=== PATIENT | male | born 1960 | race Caucasian/White ===

== ENCOUNTER 2017-07-19 16:20 | Inpatient (IN) | payer OTHER ==
[2017-07-19] VITALS (11 sets, daily range): BP systolic 116–178; BP diastolic 69–104; PULSE 77–92; RESP 16–18; TEMP 98.6; O2SAT 94–98
[~2017-07-19] VITALS: Ht 185.4 cm; Wt 93.7 kg
[~2017-07-19 16:20] MED LIST: ASPI81 PO; ATOR80TA PO; ISOS30TA3 PO; LISI-363 PO
--- NOTE | 2017-07-19 16:43 | PD ---
HPI Chief Complaint: Chest Pain Time Seen by Provider: 16:25 Travel History International Travel<30 days: No Contact w/Intl Traveler<30days: No Traveled to known affect area: No History of Present Illness HPI 56yo M with PMH of CAD s/p cardiac stent, HTN presents to the ED with c/o left sided chest pain that started about 1.5 hours ago. Pain is achy and sharp and waxes and wanes. Radiates to left arm and associated with sob and diaphoresis. Pt was just sitting down when pain started. Pt took 4 nitroglycerin but pain is not relieved. After School Counselor is Dr. Queen. Last cath was about 4-5 years ago. Denies any fever, cough, vomiting, abdominal pain, focal weakness or numbness. Last stress test about 7-8 months ago. PFSH Past Medical History Hx Anticoagulant Therapy: Yes (asa) Arthritis: No Asthma: No Heart Rhythm Problems: No Cardiovascular Problems: Yes High Cholesterol: Yes Chest Pain: Yes Congestive Heart Failure: No COPD: No Cerebrovascular Accident: No Diminished Hearing: No GERD: No Headaches: No Hepatitis: No Hiatal Hernia: No Hypertension: Yes Musculoskeletal: No Neurologic: No Respiratory: No Immunizations Current: Yes Migraines: No Myocardial Infarction: No Seizures: No Sleep Apnea: No Ulcer: No Past Surgical History Abdominal Surgery: No Appendectomy: No Cardiac Surgery: Yes (card stents times 2) Cholecystectomy: No Coronary Stent: Yes (x2) Ear Surgery: No Endocrine Surgery: No Eye Surgery: No Genitourinary Surgery: Yes (hernia repair) Gynecologic Surgery: No Oral Surgery: Yes Thoracic Surgery: No Other Surgery: Yes Social History Alcohol Use: Yes (occ) Tobacco Use: Yes (1 pk q 3 days) Substance Use: Yes (pot) Allergies-Medications (Allergen,Severity, Reaction): Coded Allergies: No Known Allergies (Verified Allergy, Unknown, 07/19/17) Reported Meds & Prescriptions Reported Meds & Active Scripts Active Reported Pantoprazole (Pantoprazole Sodium) 40 Mg Tab 40 Mg PO DAILY Isosorbide Mononitrate ER (Isosorbide Mononitrate) 60 Mg Tab 60 Mg PO DAILY Metoprolol Succinate ER 24 HR (Metoprolol Succinate) 50 Mg Tab 50 Mg PO DAILY Losartan (Losartan Potassium) 50 Mg Tab 50 Mg PO DAILY Atorvastatin (Atorvastatin Calcium) 80 Mg Tab 80 Mg PO HS Review of Systems Except as stated in HPI: all other systems reviewed are Neg Physical Exam Narrative GENERAL: 56yo M in mild distress. SKIN: Focused skin assessment warm/dry. HEAD: Atraumatic. Normocephalic. EYES: Pupils equal and round. No scleral icterus. No injection or drainage. ENT: No nasal bleeding or discharge. Mucous membranes pink and moist. NECK: Trachea midline. No JVD. CARDIOVASCULAR: Regular rate and rhythm. No murmur appreciated. RESPIRATORY: No accessory muscle use. Clear to auscultation. Breath sounds equal bilaterally. GASTROINTESTINAL: Abdomen soft, non-tender, nondistended. MUSCULOSKELETAL: No obvious deformities. No clubbing. No cyanosis. No edema. NEUROLOGICAL: Awake and alert. No obvious cranial nerve deficits. Motor grossly within normal limits. Normal speech. PSYCHIATRIC: Appropriate mood and affect; insight and judgment normal. Data Data Last Documented VS Vital Signs Date Time Temp Pulse Resp B/P (MAP) Pulse Ox O2 Delivery O2 Flow Rate FiO2 07/19/17 17:15 90 18 160/102 (121) 95 Room Air 07/19/17 16:35 98.6 Orders Orders Basic Metabolic Panel (Bmp) (07/19/17 16:37) Ckmb (Isoenzyme) Profile (07/19/17 16:37) Complete Blood Count With Diff (07/19/17 16:37) Prothrombin Time / Inr (Pt) (07/19/17 16:37) Act Partial Throm Time (Ptt) (07/19/17 16:37) Troponin I (07/19/17 16:37) Chest, Single Ap (07/19/17 16:37) Aspirin (Aspirin) (07/19/17 16:45) Morphine Inj (Morphine Inj) (07/19/17 16:45) Nitroglycerin 2% Oint (Nitroglycerin 2% (07/19/17 16:45) CKMB (07/19/17 16:45) CKMB% (07/19/17 16:45) Nitroglycerin-D5w 50 Mg/250 Ml (Nitrogly (07/19/17 17:45) Sodium Chloride 0.9% Flush (Ns Flush) (07/19/17 21:00) Sodium Chloride 0.9% Flush (Ns Flush) (07/19/17 18:00) Assistant Program Manager / Telemetry [id number] (07/19/17 17:49) Heparin Inj (Heparin Inj) (07/19/17 18:00) Heparin Inj (Heparin Inj) (07/20/17 00:00) Heparin Inj (Heparin Inj) (07/20/17 00:00) Heparin-D5w 25,000 U/250 Ml (Heparin-D5w (07/19/17 18:00) Cbc No Diff, Includes Plts (07/22/17 06:00) Act Partial Throm Time (Ptt) (07/20/17 00:49) Occult Blood (Hemoccult) Stool (07/19/17 17:49) Consult Cardiology (07/19/17 ) Admit Order (Ed Use Only) (07/19/17 17:55) Labs Laboratory Tests Test 07/19/17 16:45 White Blood Count 10.5 TH/MM3 Red Blood Count 5.44 MIL/MM3 Hemoglobin 15.7 GM/DL Hematocrit 46.3 % Mean Corpuscular Volume 85.0 FL Mean Corpuscular Hemoglobin 28.8 PG Mean Corpuscular Hemoglobin Concent 33.9 % Red Cell Distribution Width 12.5 % Platelet Count 203 TH/MM3 Mean Platelet Volume 9.8 FL Neutrophils (%) (Auto) 68.2 % Lymphocytes (%) (Auto) 20.2 % Monocytes (%) (Auto) 8.1 % Eosinophils (%) (Auto) 2.5 % Basophils (%) (Auto) 1.0 % Neutrophils # (Auto) 7.2 TH/MM3 Lymphocytes # (Auto) 2.1 TH/MM3 Monocytes # (Auto) 0.8 TH/MM3 Eosinophils # (Auto) 0.3 TH/MM3 Basophils # (Auto) 0.1 TH/MM3 CBC Comment DIFF FINAL Differential Comment Prothrombin Time 10.0 SEC Prothromb Time International Ratio 1.0 RATIO Activated Partial Thromboplast Time 23.6 SEC Blood Urea Nitrogen 15 MG/DL Creatinine 0.91 MG/DL Random Glucose 88 MG/DL Calcium Level 9.4 MG/DL Sodium Level 138 MEQ/L Potassium Level 3.6 MEQ/L Chloride Level 105 MEQ/L Carbon Dioxide Level 24.4 MEQ/L Anion Gap 9 MEQ/L Estimat Glomerular Filtration Rate 86 ML/MIN Total Creatine Kinase 117 U/L Creatine Kinase MB 2.8 NG/ML Troponin I LESS THAN 0.02 NG/ML [facility] Medical Decision Making Medical Screen Exam Complete: Yes Emergency Medical Condition: Yes Interpretation(s) EKG: Sinus tachycardia at 100bpm. LAD. RBBB that is unchanged. Q wave V2. Repeat EKG showed NSR 95bpm. RBBB. ST depression V3. Differential Diagnosis Unstable angina vs. NSTEMI Narrative Course 56yo M with left sided chest pain that started about 1.5 hours ago. Pt was just sitting down watching TV and took 4 sublingual nitro but did not help with pain. Pt said the nitro usually helps but not this time. Pt given aspirin and nitro paste but still with pain. He was given 2mg of morphine IV and pain was relieved for only a few minutes and is back. BP is elevated at 178/104 and then 160/102 after morphine. Will start pt on nitro drip and heparin drip and unstable angina. Labs reviewed, no leukocytosis. H/H normal. Troponin negative. CXR negative. Discussed with recycling crew supervisor sap pp consultant Dr. Brown who agrees with nitro and heparin drip to bring systolic BP down to less than 140. Agreed with transfer to [facility]. If patient remains in pain, pt may need emergent cath. Will update her after nitro drip. Discussed with Dr. Spence and accepted to his service. Pt reevaluated at bedside and BP is now 127/75. Pt said he still have left sided chest pain around 5 out of [address] Napoles and she advise me to call Dr. Herrera who is sap pp consultant for STEMI and see if he wants to do cardiac cath now. Discussed with Dr. Herrera who said to continue current management and transfer pt to the [facility] nonemergently. Critical Care Narrative Aggregate critical care time was 45 minutes. Time to perform other separately billable procedures was not included in the critical care time. My time did not include minutes spent treating any other patients simultaneously or on activities that did not directly contribute to the patient's treatment. The services I provided to this patient were to treat and/or prevent clinically significant deterioration that could result in: cardiovascular collapse or . I provided critical care services requiring my management, as noted below: Chart data review, documentation time, medication orders and management, vital sign assessments/reviewing monitor data, ordering and reviewing lab tests, ordering and interpreting/reviewing x-rays and diagnostic studies, care of the patient and discussion of the patient with the admitting physicians. Diagnosis Primary Impression: Unstable angina Admitting Information Admitting Physician Requests: it Laly Pinto DO Jul 19, 2017 16:43
[2017-07-19] MEDS ORDERED: ASPIRIN 325 MG TAB PO ONE (16:45)
[2017-07-19] MEDS ORDERED: ATOR80TA45 PO (16:45)
[2017-07-19] MEDS ORDERED: ISOS60TA PO (16:45)
[2017-07-19] MEDS ORDERED: NITROGLYCERIN 2% OINT 1 GM PACKET TOP ONE (16:45)
[2017-07-19] MEDS ORDERED: MORPHINE SULFATE 4 MG/ML INJ IV PUSH ONE (16:45)
[2017-07-19] MEDS ORDERED: PANT40TA3 PO (16:45)
[2017-07-19] MEDS ORDERED: LOSA50TA PO (16:45)
[2017-07-19] MEDS ORDERED: METO1TAB9 PO (16:45)
--- NOTE | 2017-07-19 17:06 | RADRPT ---
EXAM DATE/TIME: 07/19/2017 16:52 [facility] COMPARISON: CHEST SINGLE AP, September 12, 2015, 13:57. INDICATIONS : Chest pain MEDICAL HISTORY : Myocardial infarction. Hypertension SURGICAL HISTORY : cardiac stents ENCOUNTER: Initial ACUITY: 1 day PAIN SCORE: 9/10 LOCATION: Bilateral chest FINDINGS: A single view of the chest demonstrates the lungs to be symmetrically aerated without evidence of mas s, infiltrate or effusion. The cardiomediastinal contours are unremarkable. Osseous structures are intact. CONCLUSION: No acute disease. Eduard Garcia MD on July 19, 2017 at 17:04 Board Certified Radiologist. This report was verified electronically.
[2017-07-19 17:07] LABS: AUTOMATED NEUTROPHIL # 7.2 TH/MM3 (1.8-7.7); BASOPHIL # 0.1 TH/MM3 (0-0.2); EOSINOPHIL # 0.3 TH/MM3 (0-0.4); EOSINOPHIL % 2.5 % (0.0-4.0); HEMATOCRIT 46.3 % (39.0-51.0); HEMOGLOBIN 15.7 GM/DL (13.0-17.0); LYMPH % 20.2 % (9.0-44.0); LYMPHOCYTE # 2.1 TH/MM3 (1.0-4.8); MEAN CORPUSCULAR HEMOGLOBIN 28.8 PG (27.0-34.0); MEAN CORPUSCULAR HGB CONC 33.9 % (32.0-36.0); MEAN PLATELET VOLUME 9.8 FL (7.0-11.0); MONO % 8.1 % (0.0-8.0); MONOCYTE # 0.8 TH/MM3 (0-0.9); NEUT % 68.2 % (16.0-70.0); PLATELET COUNT 203 TH/MM3 (150-450); RED BLOOD COUNT 5.44 MIL/MM3 (4.50-5.90); RED CELL DISTRIBUTION WIDTH 12.5 % (11.6-17.2); WHITE BLOOD COUNT 10.5 TH/MM3 (4.0-11.0)
[2017-07-19 17:13] LABS: CHLORIDE 105 MEQ/L (98-107); SODIUM (NA) 138 MEQ/L (136-145)
[2017-07-19 17:16] LABS: CALCIUM 9.4 MG/DL (8.5-10.1)
[2017-07-19 17:17] LABS: BICARBONATE 24.4 MEQ/L (21.0-32.0); BLOOD UREA NITROGEN 15 MG/DL (7-18); GLUCOSE,RANDOM 88 MG/DL (74-106)
[2017-07-19 17:20] LABS: CREATININE 0.91 MG/DL (0.60-1.30); GLOMERULAR FILTRATION RATE 86 ML/MIN (>89)
[2017-07-19 17:24] LABS: TROPONIN I LESS THAN 0.02 NG/ML (0.02-0.05)
[2017-07-19] MEDS ORDERED: NITROGLYCERIN-D5W 50 MG/250 ML 250 ML IV ONE (17:45)
[2017-07-19] MEDS ORDERED: ACETAMINOPHEN 325 MG TAB PO PRN (18:00)
[2017-07-19] MEDS ORDERED: HEPARIN SODIUM - IV 10,000 UNITS/10 ML VIAL IV PUSH ONE (18:00)
[2017-07-19] MEDS ORDERED: ONDANSETRON HCL 4 MG/2 ML VIAL IV PUSH PRN (18:00)
[2017-07-19] MEDS ORDERED: HEPARIN-D5W 25,000 U/250 ML 250 ML IV PRN (18:00)
[2017-07-19] MEDS ORDERED: ALPRAZolam 0.25 MG TAB PO PRN (18:00)
[2017-07-19] MEDS ORDERED: MORPHINE SULFATE 4 MG/ML INJ IV PUSH PRN (18:00)
[2017-07-19] MEDS ORDERED: DOCUSATE SODIUM 100 MG CAP PO PRN (18:00)
[2017-07-19] MEDS ORDERED: SODIUM CHLORIDE 0.9% FLUSH 10 ML FLUSH IV FLUSH PRN ×2 (18:00)
[2017-07-19] MEDS: NITROGLYCERIN 2% OINT 1 GM PACKET TOP SCH ×2 (18:00→23:58)
[2017-07-19 20:52] LABS: TROPONIN I LESS THAN 0.02 NG/ML (0.02-0.05)
[2017-07-19] MEDS ORDERED: ATORVASTATIN 40 MG TAB PO SCH (21:00)
[2017-07-19] MEDS: SODIUM CHLORIDE 0.9% FLUSH 10 ML FLUSH IV FLUSH SCH ×2 (21:00)
[2017-07-19 23:27] LABS: TROPONIN I LESS THAN 0.02 NG/ML (0.02-0.05)
[2017-07-20] VITALS (24 sets, daily range): BP systolic 121–159; BP diastolic 81–104; PULSE 64–100; RESP 14–20; TEMP 97.7–98.3; O2SAT 94–97
[2017-07-20] MEDS ORDERED: HEPARIN SODIUM - IV 10,000 UNITS/10 ML VIAL IV PUSH PRN ×2
--- NOTE | 2017-07-20 02:03 | HHI.HP ---
[facility] Linden Palma DO Admission Diagnosis Unstable angina Diagnoses: Chief Complaint: Chest pain Travel History International Travel<30 Days: No Contact w/Intl Traveler <30 Da: No Traveled to Known Affected Are: No History of Present Illness 50-year-old male with medical history of CAD status post cardiac stent, hypertension presented to the ED complaining of chest pain about an hour prior to arrival. Patient states he took 5 nitro pills prior to coming to the hospital with no relief. He states the pain chest pain is pressure-like, midsternal, currently 5 out of 10 with no radiation and at times associated shortness of breath. He states the nitroglycerin drip is helping and nothing makes it worse. Illness, no cough or congestion, dizziness, fever or chills. Review of Systems Except as stated in HPI: all other systems reviewed are Neg Past Family Social History Past Medical History CAD status post cardiac stent placement Hypertension Hyperlipidemia Past Surgical History Cardiac stent placement Reported Medications Reported Meds & Active Scripts Active Reported Pantoprazole (Pantoprazole Sodium) 40 Mg Tab 40 Mg PO DAILY Isosorbide Mononitrate ER (Isosorbide Mononitrate) 60 Mg Tab 60 Mg PO DAILY Metoprolol Succinate ER 24 HR (Metoprolol Succinate) 50 Mg Tab 50 Mg PO DAILY Losartan (Losartan Potassium) 50 Mg Tab 50 Mg PO DAILY Atorvastatin (Atorvastatin Calcium) 80 Mg Tab 80 Mg PO HS Allergies: Coded Allergies: No Known Allergies (Verified Allergy, Unknown, 07/19/17) Active Ordered Medications Current Medications Medications (Trade) Dose Ordered Sig/Kelsy Route Start Time Stop Time Status Last Admin (NS Flush) 2 ml BID IV FLUSH 07/19/17 21:00 (NS Flush) 2 ml UNSCH PRN IV FLUSH 07/19/17 18:00 (Heparin Inj) 5,000 units UNSCH PRN IV PUSH 07/20/17 00:00 (Heparin Inj) 2,500 units UNSCH PRN IV PUSH 07/20/17 00:00 Heparin Sodium/ Dextrose 250 ml @ 11.28 mls/ hr TITRATE PRN IV 07/19/17 18:00 07/19/17 18:12 (NS Flush) 2 ml BID IV FLUSH 07/19/17 21:00 (NS Flush) 2 ml UNSCH PRN IV FLUSH 07/19/17 18:00 (Ecotrin Ec) 325 mg DAILY PO 07/20/17 09:00 (Nitroglycerin 2% Oint) 1 inch Q6HR TOP 07/19/17 18:00 (Morphine Inj) 2 mg Q30M PRN IV PUSH 07/19/17 18:00 07/19/17 20:30 (Tylenol) 650 mg Q6H PRN PO 07/19/17 18:00 (Colace) 100 mg BID PRN PO 07/19/17 18:00 (Xanax) 0.25 mg Q8H PRN PO 07/19/17 18:00 07/20/17 00:00 (Zofran Inj) 4 mg Q6H PRN IV PUSH 07/19/17 18:00 07/19/17 20:29 (Lipitor) 80 mg HS PO 07/19/17 21:00 07/19/17 23:57 (Imdur) 60 mg DAILY PO 07/20/17 09:00 (Cozaar) 50 mg DAILY PO 07/20/17 09:00 (Toprol Xl) 50 mg DAILY PO 07/20/17 09:00 (Protonix) 40 mg DAILY PO 07/20/17 09:00 Family History Both grandfathers of MIs Social History Tobacco use: Alcohol use: Illicit drug use: Physical Exam Vital Signs Vital Signs Date Time Temp Pulse Resp B/P (MAP) Pulse Ox O2 Delivery O2 Flow Rate FiO2 07/20/17 00:00 98.3 75 20 150/102 (118) 97 07/20/17 00:00 Room Air 07/20/17 00:00 75 07/19/17 22:10 78 144/89 (107) 07/19/17 21:39 87 140/88 (105) 07/19/17 21:00 148/90 (109) 07/19/17 20:55 95 Nasal Cannula 2.00 07/19/17 20:36 89 16 152/91 (111) 94 Nasal Cannula 2.00 07/19/17 20:00 92 146/89 (108) 07/19/17 19:30 80 145/70 (95) 07/19/17 19:14 78 98 Nasal Cannula 2.00 07/19/17 19:14 78 18 120/69 (86) 98 Nasal Cannula 2.00 07/19/17 18:27 77 18 116/78 (91) 94 Room Air 07/19/17 18:26 93 116/78 07/19/17 17:15 90 18 160/102 (121) 95 Room Air 07/19/17 16:38 90 18 95 Room Air 07/19/17 16:35 98.6 91 18 178/104 (128) 95 Physical Exam GENERAL: This is a well-nourished, well-developed patient, in no apparent distress. SKIN: No rashes, ecchymoses or lesions. Cool and dry. HEAD: Atraumatic. Normocephalic. EYES: Pupils equal round and reactive. Extraocular motions intact. ENT: Nose without bleeding, purulent drainage or septal hematoma.Airway patent. NECK: Trachea midline. No JVD or lymphadenopathy. CARDIOVASCULAR: Regular rate and rhythm without murmurs, gallops, or rubs. RESPIRATORY: Clear to auscultation. Breath sounds equal bilaterally. No wheezes , rales, or rhonchi. GASTROINTESTINAL: Abdomen soft, non-tender, nondistended. No hepato-splenomegaly , or palpable masses. No guarding. MUSCULOSKELETAL: Extremities without clubbing, cyanosis, or edema.No calf tenderness. NEUROLOGICAL: Awake and alert. Motor and sensory grossly within normal limits. Normal speech. Laboratory Laboratory Tests Test 07/19/17 16:45 07/19/17 20:05 07/19/17 22:40 White Blood Count 10.5 Red Blood Count 5.44 Hemoglobin 15.7 Hematocrit 46.3 Mean Corpuscular Volume 85.0 Mean Corpuscular Hemoglobin 28.8 Mean Corpuscular Hemoglobin Concent 33.9 Red Cell Distribution Width 12.5 Platelet Count 203 Mean Platelet Volume 9.8 Neutrophils (%) (Auto) 68.2 Lymphocytes (%) (Auto) 20.2 Monocytes (%) (Auto) 8.1 Eosinophils (%) (Auto) 2.5 Basophils (%) (Auto) 1.0 Neutrophils # (Auto) 7.2 Lymphocytes # (Auto) 2.1 Monocytes # (Auto) 0.8 Eosinophils # (Auto) 0.3 Basophils # (Auto) 0.1 CBC Comment DIFF FINAL Differential Comment Prothrombin Time 10.0 Prothromb Time International Ratio 1.0 Activated Partial Thromboplast Time 23.6 Blood Urea Nitrogen 15 Creatinine 0.91 Random Glucose 88 Calcium Level 9.4 Sodium Level 138 Potassium Level 3.6 Chloride Level 105 Carbon Dioxide Level 24.4 Anion Gap 9 Estimat Glomerular Filtration Rate 86 Total Creatine Kinase 117 107 99 Creatine Kinase MB 2.8 2.3 Troponin I LESS THAN 0.02 LESS THAN 0.02 LESS THAN 0.02 Result Diagram: 07/19/175 07/19/171644 Caprini VTE Risk Assessment Caprini VTE Risk Assessment: Mod/High Risk (score >= 2) Caprini Risk Assessment Model Point Value = 1 Point Value = 2 Point Value = 3 Point Value = 5 Age 41-60 Minor surgery BMI > 25 kg/m2 Swollen legs Varicose veins or History of unexplained or recurrent spontaneous Oral contraceptives or hormone replacement Sepsis (< 1 month) Serious lung disease, including pneumonia (< 1 month) Abnormal pulmonary function Acute myocardial infarction Congestive heart failure (< 1 month) History of inflammatory bowel disease Medical patient at bed rest Age 61-74 Arthroscopic surgery Major open surgery (> 45 min) Laparoscopic surgery (> 45 min) Malignancy Confined to bed (> 72 hours) Immobilizing plaster cast Central venous access Age >= 75 History of VTE Family history of VTE Factor V Leiden Prothrombin [id number] Lupus anticoagulant Anticardiolipin antibodies Elevated serum homocysteine Heparin-induced thrombocytopenia Other congenital or acquired thrombophilia Stroke (< 1 month) Elective arthroplasty Hip, pelvis, or leg fracture Acute spinal cord injury (< 1 month) Prophylaxis Regimen Total Risk Factor Score Risk Level Prophylaxis Regimen 0-1 Low Early ambulation 2 Moderate Order ONE of the following: *Sequential Compression Device (SCD) *Heparin 5000 units SQ BID 3-4 Higher Order ONE of the following medications: *Heparin 5000 units SQ TID *Enoxaparin/Lovenox 40 mg SQ daily (WT < 150 kg, CrCl > 30 mL/min) *Enoxaparin/Lovenox 30 mg SQ daily (WT < 150 kg, CrCl > 10-29 mL/min) *Enoxaparin/Lovenox 30 mg SQ BID (WT < 150 kg, CrCl > 30 mL/min) AND/OR *Sequential Compression Device (SCD) 5 or more Highest Order ONE of the following medications: *Heparin 5000 units SQ TID (Preferred with Epidurals) *Enoxaparin/Lovenox 40 mg SQ daily (WT < 150 kg, CrCl > 30 mL/min) *Enoxaparin/Lovenox 30 mg SQ daily (WT < 150 kg, CrCl > 10-29 mL/min) *Enoxaparin/Lovenox 30 mg SQ BID (WT < 150 kg, CrCl > 30 mL/min) AND *Sequential Compression Device (SCD) Assessment and Plan Problem List: (1) Unstable angina ICD Code: I20.0 - Unstable angina Status: Acute (2) HTN (hypertension) ICD Code: I10 - Essential (primary) hypertension Status: Acute (3) Hyperlipidemia ICD Code: E78.5 - Hyperlipidemia, unspecified Assessment and Plan 50-year-old male with medical history of CAD status post cardiac stent, hypertension presented to the ED complaining of chest pain about an hour prior to arrival. Unstable angina Troponin 0.023, EKG reviewed and shows no ST elevation -Continue nitro drip and heparin drip -Cardiology is consulted for possible cath -N.p.o. -2D echo ordered Hypertension, chronic -Resume home medications metoprolol, Imdur, and Cozaar -Monitor vitals Hyperlipidemia, chronic -Resume home medications atorvastatin DVT prophylaxis: Heparin Discussed Condition With Patient and RN Physician Certification 2 Midnight Certification Type: Admission for Inpatient Services Order for Inpatient Services The services are ordered in accordance with Medicare regulations or non- Medicare payer requirements, as applicable. In the case of services not specified as inpatient-only, they are appropriately provided as inpatient services in accordance with the 2-midnight benchmark. Estimated LOS (days): 2 days is the estimated time the patient will need to remain in the hospital, assuming treatment plan goals are met and no additional complications. Post-Hospital Plan: Home Janeen Schmitt Jul 20, 2017 02:03
[2017-07-20 02:29] LABS: CHOLESTEROL/ HDL RATIO 2.97 RATIO; HDL CHOLESTEROL 34.3 MG/DL (40.0-60.0)
[2017-07-20 02:58] LABS: CREATININE 0.88 MG/DL (0.60-1.30)
[2017-07-20 02:59] LABS: BICARBONATE 25.3 MEQ/L (21.0-32.0); CALCIUM 8.6 MG/DL (8.5-10.1)
[2017-07-20] MEDS: NITROGLYCERIN 2% OINT 1 GM PACKET TOP SCH ×3 (06:00→18:00)
[2017-07-20 06:53] LABS: AUTOMATED NEUTROPHIL # 6.3 TH/MM3 (1.8-7.7); BASOPHIL # 0.1 TH/MM3 (0-0.2); BASOPHIL % 1.1 % (0.0-2.0); EOSINOPHIL # 0.3 TH/MM3 (0-0.4); EOSINOPHIL % 3.1 % (0.0-4.0); HEMATOCRIT 42.7 % (39.0-51.0); HEMOGLOBIN 14.9 GM/DL (13.0-17.0); LYMPH % 25.5 % (9.0-44.0); LYMPHOCYTE # 2.6 TH/MM3 (1.0-4.8); MEAN CELL VOLUME 85.2 FL (80.0-100.0); MEAN CORPUSCULAR HEMOGLOBIN 29.7 PG (27.0-34.0); MEAN CORPUSCULAR HGB CONC 34.9 % (32.0-36.0); MEAN PLATELET VOLUME 10.5 FL (7.0-11.0); MONO % 8.4 % (0.0-8.0); MONOCYTE # 0.9 TH/MM3 (0-0.9); NEUT % 61.9 % (16.0-70.0); PLATELET COUNT 181 TH/MM3 (150-450); RED BLOOD COUNT 5.02 MIL/MM3 (4.50-5.90); RED CELL DISTRIBUTION WIDTH 13.5 % (11.6-17.2); WHITE BLOOD COUNT 10.2 TH/MM3 (4.0-11.0)
[2017-07-20] MEDS ORDERED: PANTOPRAZOLE SOD 40 MG DELAYED RELEASE TAB PO SCH (09:00)
[2017-07-20] MEDS: SODIUM CHLORIDE 0.9% FLUSH 10 ML FLUSH IV FLUSH SCH ×2 (09:00→09:56)
[2017-07-20] MEDS ORDERED: ISOSORBIDE MONONITRATE 60 MG CR TAB (IMDUR) PO SCH (09:00)
[2017-07-20] MEDS ORDERED: LOSARTAN 50 MG TAB PO SCH (09:00)
[2017-07-20] MEDS ORDERED: METOPROLOL SUCCINATE 50 MG EXTENDED RELEASE TAB PO SCH (09:00)
[2017-07-20] MEDS ORDERED: ASPIRIN EC 325 MG TABEC PO SCH (09:00)
[2017-07-20] MEDS ORDERED: MIDAZOLAM HCL 2 MG/2 ML VIAL ONE (13:04)
[2017-07-20] MEDS ORDERED: HEPARIN SODIUM - IV 10,000 UNITS/10 ML VIAL ONE (13:04)
[2017-07-20] MEDS ORDERED: NITROGLYCERIN INJ 5 ML ONE (13:04)
[2017-07-20] MEDS ORDERED: VERAPAMIL HCL 5 MG/2 ML VIAL ONE (13:04)
[2017-07-20] MEDS ORDERED: HEPARIN-NS/PF FLUSH BAG 2,000 ML IV FLUSH ONE (13:05)
[2017-07-20] MEDS ORDERED: LIDOCAINE HCL 1% PF 30 ML VIAL ONE (13:13)
[2017-07-20] MEDS ORDERED: amLODIPine BESYLATE 5 MG TAB PO SCH (14:00)
[2017-07-20] MEDS ORDERED: MISC INFORMATION XX ONE (14:00)
--- NOTE | 2017-07-20 14:01 | CATHPROC ---
[employer] HIS Report Study Information Study Number Admission Scheduled Start Study Start [id number] Jul 19 2017 5:56PM 07/20/2017 Jul 20 2017 12:45PM [facility] Cardiac Catheterization Admit Source Facility Department Emergency department [facility] Experience Expert Physician and Clinical Staff Initial Huang Mabry Curing Supervisorscot Case RN, Abner Curing SupervisorLeonid Haskins RN Recorder Leatha Terrell,DAISY TECH2 Scrub Shahzad Alcala RCIS(BS) Procedures Performed Procedure Location (Site) Vessel Name Coronary Angiograms LCA Left Coronary Coronary Angiograms RCA Right Coronary L Heart Cath Equipment Time Aids Social Worker Description Size Mfg Part Number Used/Scraped TRANSDUCER, TRUWAVE [id number] 12:55 MOORE DICKINSON * Used W/STOCKCOCK *[id number] *[id number] 12:55 Salemarked PACK, CCL CUSTOM * Used *[id number] 12:55 [employer]arked SUPPORT, ARTERIAL ADULT 63214 *[id number] Used [id number] 13:15 MEDTRONIC JR 4.0 DXTERITY CATHETER FR 5 Used *[id number] BAND, RADIAL COMPRESSION TR [id number] 13:36 Pharmly MEDICAL 24CM Used SHORT 24 *[id number] 12:55 Metal [employer] WIRE, EXCHANGE 260CM 3MMJ 260CM Used *[id number] 12:55 NAMIC MANIFOLD, 4 PORT * Used *[id number] 12:55 NYCOMED OMNIPAQUE, 350 MG, 150ML 150ML [id number] Used [id number] 12:55 ANAYA MEDICAL BLANKET,WARM AIR CCL * Used *[id number] SHEATH, FR6 TRANSRADIAL RM*[id number] 12:55 Medigus MEDICAL FR 6 Used SLENDER 10CM *[id number] Equipment Model, Serial, Lot Number and Expiration Data Description Model Number Serial Number Lot Number Expiration Date JR 4.0 DXTERITY CATHETER [id number] 01-16-2020 History: Current Medications Medication Dosage/Unit Route Frequency Last Date/Time Taken Imdur LOPRESSOR Statins (any) History: Allergies Allergy Reaction No Known Allergies History: Risk Factors Family History of Hypertension Dyslipidemia Previous IA Previous Heart Failure Premature CAD Yes Yes Yes Yes No Prior Valve Prior PCI Prior PCIDate Prior CABG Surgery No Yes 04/06/2013 No Cerebrovascular Peripheral Artery Chronic Lung On Dialysis Diabetes Disease Disease Disease No No No No No History: Symptoms/Diagnosis Selection Items Chest pain SOB History: Stress Tests Stress or Imaging Studies Performed No History: Other Current Smoker Method Packs a Day Years Used Pack Years Yes Cigarettes 1 40 40 Labs Hgb (g/dl) Hct (%) WBC (l/cumm) Platelets (thousands) 11.60-17.00 35.00-51.00 4.00-11.00 150.00-450.00 14.9 42.7 10.2 181 BUN (mg/dl) Creatinine (mg/dl) BUN:Creatinine (1:x) 7.00-18.00 0.50-1.30 10.00-20.00 14 0.9 15.6 Na (meq/l) K (meq/l) Cl (meq/l) CO2 (mmol/L) 136.00-145.00 3.50-5.10 98.00-107.00 21.00-32.00 141 3.6 108 25.3 PT (sec) PTT (sec) INR (PTT:PT) 9.80-11.60 24.30-30.10 0.90-1.10 10 37.1 1 Troponin I (ng/ml) CPK (u/l) CPK-MB (ng/ML) 0.02-0.05 26.00-308.00 0.50-3.60 0.02 99 2.3 Medication Medication Total Dose (Bolus/Oral) Medication Total Dosage/Unit 1% XYLOCAINE 5 mL FENTANYL 25 mcg NITRO OINTMENT 2 inches RADIAL COCKTAIL 5 mL (Bolus) VERSED 0.5 mg Medications (Bolus/Oral) Medication Time Given Dosage/Unit Administered By Reason NITRO OINTMENT 07/20/2017 12:45:32 PM 1 inches Patient arrived on 1 inches NITRO OINTMENT via Topical. Left upper chest NITRO OINTMENT 07/20/2017 1:10:47 PM 1 inches Abner Case RN 1 inches NITRO OINTMENT discontinued in lab by Abner Case RN via Topical. Ordered by Elise Maya nitro patch removed VERSED 07/20/2017 1:14:08 PM 0.5 mg Leonid Zaldivar 0.5 mg VERSED given in lab by Leonid Zaldivar RN in Left Antecubital via Peripheral IV. Ordered by Huang Gibson 1% XYLOCAINE 07/20/2017 1:14:15 PM 5 mL Huang Maya 5 mL 1% XYLOCAINE given in lab by Huang Maya in Right Radial via Subcutaneous. FENTANYL 07/20/2017 1:15:08 PM 25 mcg Leonid Zaldivar 25 mcg FENTANYL given in lab by Leonid Zaldivar RN in Left Antecubital via Peripheral IV. Ordered by Huang Ann RADIAL COCKTAIL 07/20/2017 1:17:39 PM 5 mL (Bolus) Huang Maya 5 mL (Bolus) RADIAL COCKTAIL given in lab by Leonid Zaldivar RN via Radial. Using [Solution Name]. Orde red by Huang Maya Reason: Ntg 200mcg Verapamil 2.5mg Heparin 3700U. Medication (Drip) Medication Time Given Dosage/Unit Concentration/Unit Diluent (ml) Solution IV Solutions 07/20/2017 1:03:15 PM 0 mL (IV) 500 NaCl .9 IV Solutions given in lab by Abner Case RN in Left Antecubital via Peripheral IV. Pump/Drip Flow = 20 ml/hr using NaCl .9. MARIA DEL ROSARIO-SYNEPHRINE 07/20/2017 1:22:05 PM 100 mcg 100 mcg MARIA DEL ROSARIO-SYNEPHRINE given in lab by Abner Case RN in Left Antecubital via Peripheral IV. Ordered by Huang Maya NITROGLYCERIN DRIP 07/20/2017 12:55:59 PM 11.667 mcg/min 50 mg 250 D5W Patient arrived on 11.667 mcg/min NITROGLYCERIN DRIP in Right Antecubital via Peripheral IV. Pump/Dri p Flow = 3.5 ml/hr using D5W with a concentration of 50 mg in 250 ml. NITROGLYCERIN DRIP 07/20/2017 1:21:06 PM 11.667 mcg/min 50 mg 250 D5W 11.667 mcg/min NITROGLYCERIN DRIP discontinued in lab by Abner Case RN in Right Antecubital via Per ipheral IV. Pump/Drip Flow = 3.5 ml/hr using D5W with a concentration of 50 mg in 250 ml. Ordered by Huang Maya Reason: As per jean pierre christine verbal order. Discontinued at 07/20/2017 13:21. Initial Case Assessment Cardiovascular HR Rhythm NIBP Chest Pain 81 sr 126/79 1 Circulatory - Right Pulses Dorsalis Pedis Femoral Radial 2 2 2 Scale (0,1,2,3,4,d) Circulatory - Left Pulses Dorsalis Pedis Femoral Radial 2 Scale (0,1,2,3,4,d) Neurological State Oriented to time-place- Alert Moves all extremities person Respiration - General Respiration Rate SpO2 (%) (B/min) 20 96 Final Case Assessment Cardiovascular HR Rhythm NIBP Chest Pain 78 sr 140/85 0 Circulatory - Right Pulses Dorsalis Pedis Femoral Radial 2 2 2 Scale (0,1,2,3,4,d) Circulatory - Left Pulses Dorsalis Pedis Femoral Radial 2 Scale (0,1,2,3,4,d) Neurological State Oriented to time-place- Alert Moves all extremities person Respiration - General Respiration Rate SpO2 (%) (B/min) 20 98 Chronological Log Time Study Chronological Log 12:45:19 Patient arrived via Bed. 12:45:20 Patient Name, D.O.B, / Armband Verified By R.N. 12:45:32 Patient arrived on 1 inches NITRO OINTMENT via Topical. Left upper chest 12:53:15 Consent signed by the physician and the patient and verified by the [facility] Experience Expert staff. 12:53:16 Pre-op and post- op instructions given; patient acknowledges understanding of instructions. 12:53:17 Verbal Stimulation=2 Physical Stimulation=2 Airway=2 Respiration=2 TOTAL=8. (0=absent, 1=li mited, 2=present) 12:53:19 Presedation assessment performed by Home Theater Experience Expert RN. 12:53:21 Patient has been NPO for More than 6Hrs. Skin Breakdown-none per patient 12:53:22 12:53:24 Ta Prominences Protected Vitals capture started with the following parameters, Patient=Adult, Interval=5 min, Initial Pr kdhemm=972 mmHg, 12:53:25 Deflation Rate=5 mmHg, Cuff placed on Left Arm 12:54:04 ZASY=080/84 mmhg, SpO2=96.0 % 12:55:34 Positive Allens test performed on the right radial and ulnar artery. 12:55:58 A # 20 IV was noted in the Antecubital (right). Grade = patent 12:55:59 A # 20 IV was noted in the Antecubital (left). Grade = patent Patient arrived on 11.667 mcg/min NITROGLYCERIN DRIP in Right Antecubital via Peripheral IV. Pu mp/Drip Flow = 3.5 12:55:59 ml/hr using D5W with a concentration of 50 mg in 250 ml. 12:56:00 A # 18 IV was noted in the Wrist (right). Grade = not in use. 12:57:38 18G right wrist IV removed for radial approach LHC. Tip intact, manual prssure held by Len deutsch RN 12:59:01 HR=72 bpm, HEVO=963/79 mmhg, SpO2=96.0 %, Resp=9 B/min 12:59:04 Reference ECG taken IV Solutions given in lab by Abner Case RN in Left Antecubital via Peripheral IV. Pump/Drip F low = 20 ml/hr using NaCl 13:03:15 .9. 13:04:00 HR=75 bpm, RYGJ=173/79 mmhg, Resp=16 B/min 13:04:13 History and physical on the chart or being dictated. Assessment: Initial Case, HR=81 BPM, Rhythm=sr, RLSC=315/79 mmhg, Chest Pain=1 Right Pulses: Tre Ped=2, Femoral=2, Radial=2 13:04:18 Left Pulses: Tre Ped=2 Neurological: State=Alert, Ox3, COOK Respiration: Resp=20 B/min, SpO2=96 % 13:05:01 MD arrived. 13:07:02 Pressure channel 1 zeroed. 13:09:02 HR=73 bpm, HWND=379/79 mmhg, SpO2=94.0 %, Resp=17 B/min 1 inches NITRO OINTMENT discontinued in lab by Abner Case RN via Topical. Ordered by Huang Maya nitro 13:10:47 patch removed Time Out. Correct patient, correct procedure, correct physician, power injector not used/loaded with contrast with 13:12:33 surgical team present. Time Out Concurred by MD and individual staff in procedure. 13:13:59 HR=71 bpm, OARV=458/88 mmhg, SpO2=95.0 %, Resp=17 B/min 13:14:08 0.5 mg VERSED given in lab by Leonid Zaldivar RN in Left Antecubital via Peripheral IV. Order ed by Huang Maya 13:14:14 Case Start 13:14:15 5 mL 1% XYLOCAINE given in lab by Huang Maya in Right Radial via Subcutaneous. 25 mcg FENTANYL given in lab by Leonid Zaldivar RN in Left Antecubital via Peripheral IV. Ordered by Huang Maya 13:15:08 G. 13:16:18 Access site was Radial Artery. right A SHEATH, FR6 TRANSRADIAL SLENDER 10CM FR 6 was advanced into the Fem Art (right) using the Per cutaneous 13:16:59 technique. 5 mL (Bolus) RADIAL COCKTAIL given in lab by Leonid Zaldivar RN via Radial. Using [Solution Name] . Ordered by 13:17:39 Huang Maya Reason: Ntg 200mcg Verapamil 2.5mg Heparin 3700U. A JR 4.0 DXTERITY CATHETER FR 5 was advanced over a wire. OMNIPAQUE, 350 MG, 150ML 150ML was us ed for 13:18:37 injections. 13:19:06 HR=82 bpm, MWNV=794/63 mmhg, SpO2=93 %, Resp=17 B/min Recorded Pressure: LV, HR=79, Condition=Condition 1 13:19:11 (Left Ventricle) LV 84/0/4 13:19:52 Pressure channel 1 zeroed. Recorded Pressure: LV, HR=67, Condition=Condition 1 13:20:04 (Left Ventricle) LV 67/1/6 Recorded Pressure: Ao, HR=69, Condition=Condition 1 13:20:45 (Aorta) Ao 56/38/44 11.667 mcg/min NITROGLYCERIN DRIP discontinued in lab by Abner Case RN in Right Antecubital v ia Peripheral IV. 13:21:06 Pump/Drip Flow = 3.5 ml/hr using D5W with a concentration of 50 mg in 250 ml. Ordered by Huang Ann Reason: As per physicians verbal order. Discontinued at 07/20/2017 13:21. 100 mcg MARIA DEL ROSARIO-SYNEPHRINE given in lab by Abner Case RN in Left Antecubital via Peripheral IV. O rdered by Francesco, 13:22:05 Huang Buenrostro Recorded Pressure: Ao, HR=73, Condition=Condition 1 13:23:31 (Aorta) Ao 119/81/99 13:24:31 HR=82 bpm, CABC=328/84 mmhg, SpO2=96 %, Resp=20 B/min Recorded Pressure: LV, HR=80, Condition=Condition 1 13:24:45 (Left Ventricle) LV 121/5/15 Recorded Pressure: LV, Ao, HR=76, Condition=Condition 1 13:25:08 (Left Ventricle) LV 119/4/16, (Aorta) Ao 116/72/92 13:26:08 The RCA was injected and visualized at various angles. OMNIPAQUE, 350 MG, 150ML 150ML used . After removing the current catheter a JL 3.5 INFINITI CATHETER FR 5 was advanced over a WIRE, E XCHANGE 260CM 13:27:16 3MMJ 260CM. 13:27:21 The LCA was injected and visualized at various angles. OMNIPAQUE, 350 MG, 150ML 150ML used . 13:29:02 HR=83 bpm, SSPJ=546/87 mmhg, SpO2=96.0 %, Resp=15 B/min 13:34:03 HR=79 bpm, VAXZ=219/85 mmhg, SpO2=95.0 %, Resp=22 B/min 13:36:07 Case End Radial Compression Device Used. 12 mLs of air placed in BAND, RADIAL COMPRESSION TR SHORT 24 24 CM. Affected 13:37:16 hand 95 % O2 saturation. 13:39:06 HR=78 bpm, TRSC=557/85 mmhg, SpO2=96.0 %, Resp=9 B/min Assessment: Final Case, HR=78 BPM, Rhythm=sr, HDZD=503/85 mmhg, Chest Pain=0 Right Pulses: Tre Ped=2, Femoral=2, Radial=2 13:41:11 Left Pulses: Tre Ped=2 Neurological: State=Alert, Ox3, COOK Respiration: Resp=20 B/min, SpO2=98 % 13:41:21 No case complications noted. 13:41:22 Cine recording checked. 13:41:23 Bedside Report will be given. 13:41:29 A Left Heart Cath was performed. 13:47:31 Patient moved to bed 13:47:38 Patient transported to [facility] End Study - Contrast Media Used In Study Contrast Total Opened (mL) Total Used (mL) Total Wasted (mL) Omnipaque 40 40 0 End Study - Maximum Contrast Load Max Contrast Load (mL) 520.5 End Study - Radiation Exposure Fluoro Time (minutes) 2.2 End Study - Sheaths Sheaths Pulled By Sheath Hold Time (min) Shahzad Alcala End Study - Patient Disposition Complications Transferred To Interventional Outcome No Telemetry Bed No attempt made
[2017-07-20] MEDS ORDERED: PHENYLEPHRINE HCL 10 MG/ML VIAL ONE (14:05)
[2017-07-20] MEDS ORDERED: IOHEXOL 350 MG/ML 50 ML BTL (for Cath Lab) OTHER ONE (14:08)
--- NOTE | 2017-07-20 14:26 | MB ---
cc: Huang Maya DO DATE: 07/20/2017 REASON FOR CONSULTATION: Chest pain. HISTORY OF PRESENT ILLNESS: Dc Galloway is a pleasant 56-year-old male who sees Dr. Odell in the office and presented due to chest pain. He states the chest pain started, and he took 5 nitroglycerine pills prior to coming to the hospital with no relief. He states that the chest pain is somewhat pressure-like, midsternal with no radiation. He denies shortness of breath or diaphoresis. On arrival, his blood pressure was noted to be 180/104, and he was started on a nitroglycerin drip, which did help his chest pain as well as decrease his blood pressure. In seeing him, he is currently hemodynamically stable without chest pain or shortness of breath. PAST MEDICAL HISTORY: 1. Coronary artery disease. 2. Hypertension. 3. Hyperlipidemia. PAST SURGICAL HISTORY: Stenting of what appears to be the LAD and diagonal (2013). ALLERGIES: NO KNOWN DRUG ALLERGIES. MEDICATIONS: 1. Lipitor 80 mg every night. 2. Imdur 60 mg daily. 3. Toprol-XL 50 mg daily. 4. Losartan 50 mg daily. 5. Protonix 40 mg daily. SOCIAL HISTORY: The patient occasionally drinks alcohol. He smokes a pack over 3 days. He occasionally uses marijuana. FAMILY HISTORY: Denies sudden cardiac within the family. REVIEW OF SYSTEMS: Fourteen systems were reviewed including osteopathic. Pertinent positives and negatives above, otherwise negative. PHYSICAL EXAMINATION: VITAL SIGNS: Temperature 97.8, heart rate 79, blood pressure 138/85, respirations 16, pulse oximetry 96% on room air. GENERAL: The patient appears well, in no acute distress. Alert, awake and oriented x 3. HEENT: Extraocular muscles intact. Mucous membranes moist. NECK: Supple. No JVD at 45 degrees. No carotid bruits heard bilaterally. Carotid upstroke is brisk in nature. HEART: Regular rate and rhythm. Positive first and second heart sounds were noted. No murmurs, gallops or rubs. LUNGS: Clear to auscultation bilaterally. No wheezes, rales or rhonchi. ABDOMEN: Soft, nontender, nondistended. No organomegaly noted. EXTREMITIES: Show no clubbing, cyanosis or edema. Femoral and distal pulses intact bilaterally. NEUROLOGIC: No focal deficits. SKIN: Warm, dry and intact. OSTEOPATHIC: No kyphoscoliosis, lordosis or paraspinal tender points. LABORATORY DATA: Hemoglobin 14.9, hematocrit 42.7, platelets 181. Potassium 3.6, BUN 15, creatinine 0.91. Troponin negative x 3. Electrocardiogram (07/19/2017 at 2246), sinus rhythm with first degree AV block, possible left atrial enlargement, right bundle branch block. IMPRESSIONS: 1. Chest pain concerning for coronary insufficiency. 2. Accelerated hypertension/hypertensive urgency. 3. Coronary artery disease. 4. Tobacco abuse. RECOMMENDATIONS: 1. Mr. Galloway presented with chest pain and this may be due to his accelerated hypertension with a blood pressure of 180/100 versus possible progression of his coronary artery disease. 2. Due to his significant chest pain, I feel that he should undergo cardiac catheterization and forego stress testing. 3. Risks, benefits and alternatives were explained to him and he consented to such. 4. Further recommendations will be made after coronary visualization. Thank you for allowing me to see Dc Galloway. If there are any questions, please do not hesitate to call. DO JAMES Obregon/HUNG , 02:03 PM , 02:24 PM
--- NOTE | 2017-07-20 14:51 | MA ---
cc: Huang Maya DO DATE: 07/20/2017 PROCEDURE PERFORMED: Left heart catheterization, coronary angiogram, moderate sedation 20 minutes. PREPROCEDURE DIAGNOSIS: Unstable angina, chest pain, coronary artery disease. POSTPROCEDURE DIAGNOSIS: Coronary artery disease, small vessel disease, for medical management, hypertensive urgency. MEDICATIONS: Versed 0.5 mg, fentanyl 25 mcg, phenylephrine 50 mcg, verapamil 2.5 mg, nitroglycerine 200 mcg, heparin 3700 units. CONTRAST USED: 40 mL FLUOROSCOPY: 2.2 minutes. MODERATE SEDATION: 20 minutes. FRAILTY SCORE: 3. ESTIMATED BLOOD LOSS: 10 mL. PROCEDURAL SUMMARY: Dc Galloway is a pleasant 56-year-old male who sees Dr. Odell in the office and presented to [facility] Emergency Room due to chest pain. Because of the significance of his chest pain, it was felt reasonable to forego stress testing and undergo cardiac catheterization. Risks, benefits and alternatives were explained to him, and he consented to such. He was brought to the lab and prepped in the usual sterile method. Right radial artery was accessed using a modified Seldinger technique and placement of a 5/6 Syriac slender sheath. This was easily aspirated and flushed. A JR4 was advanced over a J-wire to the ascending aorta and across the aortic valve for measurement of left ventricular pressure. At this time, the patient had a significant reaction to the medications leading to hypotension, and so he was given 50 mcg of phenylephrine with adequate response. At this time, nitroglycerin was turned off. JR4 was then pulled back across the aortic valve showing no significant gradient of aortic stenosis. JR4 was used for selective angiography of the right coronary artery system. After this, as the patient's blood pressure was better, the JR4 was advanced back across the aortic valve for remeasurement of left ventricular pressure. This was pulled back across the aortic valve. JR4 was exchanged for a JL3.5, which was used for selective angiography of the left coronary artery system. JL3.5 was removed over a J wire. A radial band was placed over the arteriotomy site for hemostasis. 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 FINDINGS: LEFT MAIN: Normal size vessel with adequate reflux. No significant disease. It bifurcates into an LAD and circumflex. LAD: Normal size vessel with a 30% lesion after the takeoff of the first diagonal. After this, the vessel gets overall small throughout. It gives off 1 major diagonal, which has a stent patent in it with mild in-stent restenosis of 10%. LEFT CIRCUMFLEX: Normal size vessel, which gives off 2 major obtuse marginals with the first having 20% ostial disease and the second being an overall small vessel of 1.5 mm, which appears to be subtotally occluded both at the proximal portion as well as the distal portion. RCA: Normal size vessel with no significant disease throughout. There appears to be right to left collateralization of the distal obtuse marginal. LVEDP 16. IMPRESSIONS: 1. Chest pain, most likely due to unstable angina. 2. Coronary artery disease with subtotal occlusion of the distal second obtuse marginal, which appears to have collateralization from the right coronary artery. 3. Coronary artery disease. 4. Tobacco abuse. RECOMMENDATIONS: 1. Mr. Galloway appears to have significant disease of an overall small obtuse marginal, which is about 1.5 mm, and appears to have collateralization from the right coronary artery system. 2. I believe that he should continue with medical management as this vessel is too small to be stented and would only be ballooned. Overall, it covers a small area of myocardium. 3. His chest pain is more likely from his accelerated hypertension/hypertensive urgency with a blood pressure of 180/100. In discussing this with him, he states that he previously saw a doctor and they removed 5-6 of his medications. 4. He should continue on aspirin therapy for his previous coronary artery disease. 5. I have added Norvasc 5 mg daily, both for its antihypertensive as well as antianginal effects. 6. If stable later today off nitroglycerin drip, he may be discharged home for followup with Dr. Odell in the office. Thank you for allowing me to see Dc Galloway. If there are any questions, please do not hesitate to call. Huang Maya, VGP/SB , 02:12 PM , 02:50 PM
--- NOTE | 2017-07-20 16:16 | HHI.PR ---
Subjective Remarks Patient is feeling well this morning, understands he will likely need a heart catheterization. He has no active chest pain. Denies nausea and vomiting. Objective Vitals Vital Signs Date Time Temp Pulse Resp B/P (MAP) Pulse Ox O2 Delivery O2 Flow Rate FiO2 07/20/17 15:01 74 07/20/17 15:00 98.2 72 18 121/81 (94) 96 07/20/17 14:01 76 07/20/17 13:37 72 56/30 07/20/17 12:28 2.00 07/20/17 12:01 76 07/20/17 11:00 97.8 79 16 138/85 (102) 96 07/20/17 11:00 75 07/20/17 10:01 76 07/20/17 09:01 74 07/20/17 08:01 72 07/20/17 07:00 96 Room Air 07/20/17 07:00 97.7 81 14 159/104 (122) 94 07/20/17 07:00 81 159/104 07/20/17 07:00 66 07/20/17 06:00 75 07/20/17 05:00 74 07/20/17 04:00 Room Air 07/20/17 04:00 98.1 69 18 150/97 (114) 97 07/20/17 04:00 69 07/20/17 03:00 72 07/20/17 02:00 70 07/20/17 01:00 73 07/20/17 00:00 98.3 75 20 150/102 (118) 97 07/20/17 00:00 Room Air 07/20/17 00:00 75 07/19/17 22:10 78 144/89 (107) 07/19/17 21:39 87 140/88 (105) 07/19/17 21:00 148/90 (109) 07/19/17 20:55 95 Nasal Cannula 2.00 07/19/17 20:36 89 16 152/91 (111) 94 Nasal Cannula 2.00 07/19/17 20:00 92 146/89 (108) 07/19/17 19:30 80 145/70 (95) 07/19/17 19:14 78 98 Nasal Cannula 2.00 07/19/17 19:14 78 18 120/69 (86) 98 Nasal Cannula 2.00 07/19/17 18:27 77 18 116/78 (91) 94 Room Air 07/19/17 18:26 93 116/78 07/19/17 17:15 90 18 160/102 (121) 95 Room Air 07/19/17 16:38 90 18 95 Room Air 07/19/17 16:35 98.6 91 18 178/104 (128) 95 I/O 07/19/17 07/19/17 07/19/17 07/20/17 07/20/17 07/20/17 07:00 15:00 23:00 07:00 15:00 23:00 Output Total 600 ml Balance -600 ml Output Urine Total 600 ml # Bowel Movements 0 Result Diagram: 07/20/17 0143 07/20/17 0143 Objective Remarks GENERAL: Well-nourished, well-developed patient. SKIN: Warm and dry. HEAD: Normocephalic. EYES: No scleral icterus. No injection or drainage. NECK: Supple, trachea midline. No JVD or lymphadenopathy. CARDIOVASCULAR: Regular rate and rhythm without murmurs, gallops, or rubs. RESPIRATORY: Breath sounds equal bilaterally. No accessory muscle use. GASTROINTESTINAL: Abdomen soft, non-tender, nondistended. EXTREMITIES: No cyanosis, or edema. NEUROLOGICAL: Awake, alert, and oriented x 3. Non-focal. A/P Problem List: (1) Unstable angina ICD Code: I20.0 - Unstable angina Status: Acute (2) HTN (hypertension) ICD Code: I10 - Essential (primary) hypertension Status: Acute (3) Hyperlipidemia ICD Code: E78.5 - Hyperlipidemia, unspecified Assessment and Plan 50-year-old male with HTN, CAD, h/o stents, presented to ER w/ Chest Pain Unstable angina Troponin 0.023 on arrival, normal EKG Patient will be undergoing heart catheterization 2D echo is pending Appreciate cardiology following Hypertension, chronic Continue home medications metoprolol, Imdur, and Cozaar Hyperlipidemia, chronic Continue home medications atorvastatin DVT prophylaxis Heparin Jude Palma MD Jul 20, 2017 16:16
--- NOTE | 2017-07-20 17:23 | EKG ---
Date Performed: 07/19/2017 Time Performed: 21:15:45 PTAGE: 56 years EKG: Sinus rhythm POSSIBLE LEFT ATRIAL ENLARGEMENT MARKED LEFT AXIS DEVIATION RIGHT BUNDLE BRANCH BLOCK Since the prev ious tracing, no significant change noted ABNORMAL ECG PREVIOUS TRACING : 07/19/2017 21.01 DOCTOR: Michael Lane Interpretating Date/Time 07/20/2017 17:22:43
--- NOTE | 2017-07-20 17:23 | EKG ---
Date Performed: 07/19/2017 Time Performed: 16:46:27 PTAGE: 56 years EKG: Sinus rhythm POSSIBLE LEFT ATRIAL ENLARGEMENT RIGHT BUNDLE BRANCH BLOCK Compared to previous tracing, nonspecific T wave changes are now present ABNORMAL ECG PREVIOUS TRACING : 09/13/2015 05.31 DOCTOR: Michael Lane Interpretating Date/Time 07/20/2017 17:22:35
--- NOTE | 2017-07-20 17:23 | EKG ---
Date Performed: 07/19/2017 Time Performed: 22:46:55 PTAGE: 56 years EKG: Sinus rhythm WITH FIRST DEGREE AV BLOCK POSSIBLE LEFT ATRIAL ENLARGEMENT MARKED LEFT AXIS DEVIATION RIGHT BUNDLE BRANCH BLOCK Since the previous tracing, no significant change noted ABNORMAL ECG PREVIOUS TRACING : 07/19/2017 21.15 DOCTOR: Michael Lane Interpretating Date/Time 07/20/2017 17:22:51
[2017-07-20] MEDS ORDERED: AMLO5 PO (18:48)
--- NOTE | 2017-07-20 18:54 | HHI.DS ---
Discharge Summary Admission Date Jul 19, 2017 at 17:56 Discharge Date: Jul 20, 2017 Admitting Diagnosis Unstable angina (1) Unstable angina ICD Code: I20.0 - Unstable angina Status: Acute (2) HTN (hypertension) ICD Code: I10 - Essential (primary) hypertension Status: Acute (3) Hyperlipidemia ICD Code: E78.5 - Hyperlipidemia, unspecified Procedures Cardiac angiogram (cath without stenting due to small vessel size) Brief History - From Admission 50-year-old male with medical history of CAD status post cardiac stent, hypertension presented to the ED complaining of chest pain about an hour prior to arrival. Patient states he took 5 nitro pills prior to coming to the hospital with no relief. He states the pain chest pain is pressure-like, midsternal, currently 5 out of 10 with no radiation and at times associated shortness of breath. He states the nitroglycerin drip is helping and nothing makes it worse. Illness, no cough or congestion, dizziness, fever or chills. CBC/BMP: 07/20/17 0143 07/20/17 0143 Significant Findings Laboratory Tests Test 07/19/17 16:45 07/19/17 20:05 07/19/17 22:40 07/20/17 01:43 Monocytes (%) (Auto) 8.1 % (0.0-8.0) 8.4 % (0.0-8.0) Activated Partial Thromboplast Time 23.6 SEC (24.3-30.1) 31.2 SEC (24.3-30.1) Estimat Glomerular Filtration Rate 86 ML/MIN (>89) Troponin I LESS THAN 0.02 NG/ML LESS THAN 0.02 NG/ML LESS THAN 0.02 NG/ML Chloride Level 108 MEQ/L (98-107) Triglycerides Level 218 MG/DL (42-150) Cholesterol Level 102 MG/DL (120-200) HDL Cholesterol 34.3 MG/DL (40.0-60.0) Test 07/20/17 10:23 Activated Partial Thromboplast Time 37.1 SEC (24.3-30.1) PE at Discharge GENERAL: Well-nourished, well-developed patient. SKIN: Warm and dry. HEAD: Normocephalic. EYES: No scleral icterus. No injection or drainage. NECK: Supple, trachea midline. No JVD or lymphadenopathy. CARDIOVASCULAR: Regular rate and rhythm without murmurs, gallops, or rubs. RESPIRATORY: Breath sounds equal bilaterally. No accessory muscle use. GASTROINTESTINAL: Abdomen soft, non-tender, nondistended. EXTREMITIES: No cyanosis, or edema. NEUROLOGICAL: Awake, alert, and oriented x 3. Non-focal. Hospital Course 56M admitted for unstable angina (atypical chest pain). He was previously stented, but had a recurrence of his chest pain. Attempt at cardiac catheterization today revealed a 1.5mm vessel with evidence of obstruction that is too small to be stented, but only affects a small portion of the myocardium. Recommendation of cardiology is medical management, namely blood pressure control. He was recently reduced in his overall BP medication, so amlodipine was added back today by ventilation worker for both BP mgmt and anti-anginal effects. He is cleared for discharge by cardiology and plans to follow up with his ventilation worker Dr. Odell in 2 weeks. Pt Condition on Discharge: Good Discharge Disposition: Discharge Home Discharge Time: <= 30 minutes Discharge Instructions DIET: Follow Instructions for: Heart Healthy Diet Activities you can perform: Regular-No Restrictions Jude Palma MD Jul 20, 2017 18:54
--- NOTE | 2017-07-20 19:22 | ECHRPT ---
Indication: Chest pain CONCLUSIONS The left ventricular systolic function is normal with an estimated ejection fraction in the range of 55-60%. Doppler parameters are consistent with impaired left ventricular relaxtion (grade 1 diastolic dysfun ction). Trace mitral valve regurgitation. There is trace tricuspid valve regurgitation. BP: 150 / 97 HR: 69 Rhythm: Sinus MEASUREMENTS (Male / Female) Normal Values Technical Quality:Fair 2D ECHO LV Diastolic Diameter PLAX 5.1 cm 4.2 - 5.9 / 3.9 - 5.3 cm LV Systolic Diameter PLAX 3.8 cm IVS Diastolic Thickness 1.0 cm 0.6 - 1.0 / 0.6 - 0.9 cm LVPW Diastolic Thickness 1.0 cm 0.6 - 1.0 / 0.6 - 0.9 cm LV Relative Wall Thickness 0.4 RV Internal Dim ED PLAX 3.5 cm LVOT Diameter 2.2 cm LA Systolic Diameter LX 3.6 cm 3.0 - 4.0 / 2.7 - 3.8 cm M-MODE Aortic Root Diameter MM 3.2 cm LA Systolic Diameter MM 3.8 cm LA Ao Ratio MM 1.2 AV Cusp Separation MM 1.9 cm DOPPLER AV Peak Velocity 136.0 cm/s AV Peak Gradient 7.4 mmHg LVOT Peak Velocity 107.0 cm/s LVOT Peak Gradient 4.6 mmHg AV Area Cont Eq pk 3.0 cm MV Area PHT 3.4 cm Mitral E Point Velocity 45.5 cm/s Mitral A Point Velocity 55.1 cm/s Mitral E to A Ratio 0.8 LV E' Lateral Velocity 9.0 cm/s Mitral E to LV E' Lateral Ratio 5.1 LV E' Septal Velocity 5.9 cm/s Mitral E to LV E' Septal Ratio 7.6 TR Peak Velocity 206.0 cm/s TR Peak Gradient 17.0 mmHg Right Atrial Pressure 10.0 mmHg Pulmonary Artery Systolic Pressu 27.0 mmHg Right Ventricular Systolic Press 27.0 mmHg FINDINGS LEFT VENTRICLE The left ventricular systolic function is normal with an estimated ejection fraction in the range of 55-60%. Wall thickness is normal. Normal left ventricular size. Doppler parameters are consistent with impaired left ventricular relaxtion (grade 1 diastolic dysfun ction). No regional wall motion abnormalities are present. RIGHT VENTRICLE Normal right ventricular size and systolic function. LEFT ATRIUM The left atrial size is normal. RIGHT ATRIUM The right atrial size is normal. ATRIAL SEPTUM Normal atrial septal thickness without atrial level shunting by limited color doppler interrogation. AORTA The aortic root and proximal ascending aorta are normal in size on limited imaging. MITRAL VALVE Structurally normal mitral valve. Trace mitral valve regurgitation. AORTIC VALVE Trileaflet aortic valve. No aortic valve stenosis or regurgitation. TRICUSPID VALVE Structurally normal tricuspid valve. There is trace tricuspid valve regurgitation. The estimated pulmonary arterial pressure is 27 mmHg. PULMONARY VALVE No pulmonary valve regurgitation or stenosis. VESSELS The inferior vena cava is normal in size. PERICARDIUM No pericardial effusion. Huang Maya DO (Electronically Signed) Final Date:20 July 2017 19:21
== END 2017-07-20 19:51 | disposition home or self-care (01) | DRG 287 ==
LOC: PHED 16:20 → PHEDA 17:56 → HCIS 23:15
PROVIDERS: ADMIT Family Medicine; ATTEND Family Medicine
PROC: B2111ZZ Fluoroscopy of Multiple Coronary Arteries using Low Osmolar Contrast (ICD-10-PCS; 2017-07-20)
PROC: B2151ZZ Fluoroscopy of Left Heart using Low Osmolar Contrast (ICD-10-PCS; 2017-07-20)
PROC: 4A023N7 Measurement of Cardiac Sampling and Pressure, Left Heart, Percutaneous Approach (ICD-10-PCS; principal; 2017-07-20 15:00)
DX: I25.110 Atherosclerotic heart disease of native coronary artery with unstable angina pectoris (principal); I10 Essential (primary) hypertension; I16.0 Hypertensive urgency; E78.5 Hyperlipidemia, unspecified; E78.00 Pure hypercholesterolemia, unspecified; I95.2 Hypotension due to drugs; F12.90 Cannabis use, unspecified, uncomplicated; F17.200 Nicotine dependence, unspecified, uncomplicated; Z95.5 Presence of coronary angioplasty implant and graft; Z79.82 Long term (current) use of aspirin
CPT/HCPCS: 71045; 80048; 80061; 82550; 82552; 84484; 85025; 85610; 85730; 93005; 93306; 93458; 96374; 99152; C1769; C1893; J1644; J2250; J2270; J2370; J2405; J3010; Q9967